=== PATIENT | male | born 1960 | race Two or more races ===

== ENCOUNTER 2021-04-05 11:12 | Emergency (ER) | payer OTHER ==
[~2021-04-05] VITALS: Ht 170.2 cm; Wt 68.5 kg
[2021-04-05] MEDS ORDERED: GLUMETZA500 MG PO (11:45)
== END 2021-04-05 16:00 | disposition home or self-care (01) ==
LOC: ER 11:12
DX: E86.0 Dehydration (principal); E11.65 Type 2 diabetes mellitus with hyperglycemia; Z79.84 Long term (current) use of oral hypoglycemic drugs; I10 Essential (primary) hypertension